=== PATIENT | female | born 1990 | race African-American/Black ===

== ENCOUNTER 2017-02-15 17:41 | Emergency (ER) | payer BC, MEDICAID ==
[~2017-02-15] VITALS: Ht 162.6 cm; Wt 66.0 kg
[2017-02-15 18:07] VITALS: BP 130/78
== END 2017-02-15 21:41 | disposition left against medical advice (07) ==
LOC: ER 17:41
DX: H92.03 Otalgia, bilateral (principal); Z53.21 Procedure and treatment not carried out due to patient leaving prior to being seen by health care provider

== ENCOUNTER 2024-06-15 20:25 | Emergency (ER) | payer BC ==
[~2024-06-15] VITALS: Ht 165.1 cm; Wt 70.7 kg
[2024-06-15 20:45] VITALS: BP 123/87; RESP 16; TEMP 37.2; O2SAT 99
[2024-06-15 20:46] VITALS: PULSE 100; O2SAT 98
== END 2024-06-16 08:00 | disposition left against medical advice (07) ==
LOC: ER 20:25
DX: R05.9 Cough, unspecified (principal); Z53.21 Procedure and treatment not carried out due to patient leaving prior to being seen by health care provider